=== PATIENT | female | born 1960 | race American Indian/Alaskan Native ===

== ENCOUNTER 2021-09-11 13:26 | Outpatient (CLI) | payer OTHER | END 2021-09-11 13:27 | disposition home or self-care (01) | LOC: PF 13:26 | PROVIDERS: ATTEND Internal Medicine | DX: R06.02 Shortness of breath (principal); I10 Essential (primary) hypertension; M54.50 Low back pain, unspecified; F32.A Depression, unspecified | CPT/HCPCS: 94010; 94726; 94729 ==